=== PATIENT | female | born 1940 | race Caucasian/White ===

== ENCOUNTER 2016-03-22 15:51 | Emergency (ER) | payer MEDICARE ==
[2016-03-22] MEDS ORDERED: SODIUM CHLORIDE 0.9% 1,000 ML ONE (16:41)
== END 2016-03-22 19:50 | disposition home or self-care (01) ==
LOC: ER 15:51
DX: R55 Syncope and collapse (principal); T46.3X5A Adverse effect of coronary vasodilators, initial encounter; R53.1 Weakness; Z86.73 Personal history of transient ischemic attack (TIA), and cerebral infarction without residual deficits
CPT/HCPCS: 36415; 80053; 81001; 82947; 85025; 87088; 93005; 96360